=== PATIENT | female | born 1975 | race Caucasian/White ===

== ENCOUNTER 2024-04-03 17:29 | Emergency (ER) | payer BC, SELFPAY ==
[2024-04-03] VITALS (13 sets, daily range): BP systolic 132–186; BP diastolic 79–106; PULSE 66–82; RESP 15–18; TEMP 36.9; O2SAT 97–100; BMI 23.6
--- NOTE | 2024-04-03 17:37 | DI.RAD.S_ITS ---
PROCEDURE: XR CHEST 1V INDICATIONS: chest pain TECHNIQUE: One view of the chest was acquired. COMPARISON: None. FINDINGS: Surgical changes and devices: None. Lungs and pleura: No dense consolidation or pleural effusion. There are low lung volumes. Mediastinum: Normal heart size Bones and chest wall: Unremarkable IMPRESSION: No acute radiographic abnormality on this limited single view study with low lung volumes. Dictated by: Ananth Adorno M.D. on 04/03/2024 at 18:20 Approved by: Ananth Adorno M.D. on 04/03/2024 at 18:20
--- NOTE | 2024-04-03 17:37 | EKG_ITS ---
[address] [address] [place] [address] Test Date: 2024-04-03 Pat Name: Damaris Daigle Department: [facility] Room: Gender: Female Senior Lead Project Manager: GALO ALLEN : 1975 Requested By: Order Number: [id number] Reading MD: Pancho Wolf MD Measurements Intervals [place] Rate: 73 P: 5 ME: 156 QRS: 15 QRSD: 76 T: 13 QT: 412 QTc: 453 Interpretive Statements Sinus rhythm with occasional premature ventricular complexes Electronically Signed On 04-04-2024 7:57:46 PDT by Pancho Wolf MD
[2024-04-03 17:52] LABS: Add Manual Diff / Slide Review NO; Basophils Absolute Auto 100 /uL (0-100); Basophils Percent Auto 1.2 % (0-2); Eosinophils Absolute Auto 100 /uL (0-450); Eosinophils Percent Auto 1.4 % (2-4); Hemoglobin 14.8 g/dL (12.0-16.0); Lymphocytes Absolute Auto 2200 /uL (1100-4500); Mean Corpuscular HGB Conc 34.4 % (30-36); Mean Corpuscular Hemoglobin 31.6 PG (26-34); Mean Corpuscular Volume 91.9 fL (80-100); Monocytes Absolute Auto 600 /uL (0-900); Monocytes Percent Auto 10.1 % (3-14); Neutrophils Absolute Auto 3000 /uL (1500-7000); Neutrophils Percent Auto 50.3 % (50-75); Platelet Count 224 X10^3/uL (150-400); Red Blood Cell Count 4.68 X10^6/uL (4.0-5.2); Red Cell Distribution Width 12.1 % (11.6-14.8); White Blood Cell Count 5.9 X10^3/uL (4.5-11.0)
[2024-04-03 18:00] LABS: Prothrombin Time 11.4 SECONDS (9.4-12.5)
[2024-04-03] MEDS: ASPIRIN 81 MG CHEW TAB 324 MG PO (18:02)
[2024-04-03 18:03] LABS: PTT Partial Thromboplastin Tim 41 SECONDS (25.1-36.5)
[2024-04-03] MEDS: NITROGLYCERIN 0.4 MG SL TAB SL ×3 (18:03→18:22)
[2024-04-03 18:06] LABS: Alanine Aminotransferase 18 IU/L (<35); Albumin 4.6 g/dL (3.5-5.0); Albumin Globulin Ratio 1.4 (1.0-2.8); Alkaline Phosphatase 76 U/L (38-126); Aspartate Aminotransferase 24 IU/L (14-36); BUN Creatinine Ratio 16.1 (6-22); Bilirubin Total 0.6 mg/dL (0.2-1.3); Blood Urea Nitrogen 14 mg/dL (7-17); Calcium 9.5 mg/dL (8.4-10.2); Carbon Dioxide 26 mmol/L (22-32); Chloride 104 mmol/L (98-107); Creatine Kinase 64 U/L (30-135); Estimated Glomerular Filt Rate > 60 mL/min (>60); Globulin 3.3 g/dL (1.7-4.1); Glucose 119 mg/dL (70-100); HEMOLYSIS < 15 (0-50); Lipase 83 U/L (23-300); Magnesium 2.3 mg/dL (1.6-2.3); Potassium 3.7 mmol/L (3.4-5.1); Sodium 138 mmol/L (137-145); Total Protein 7.9 g/dL (6.3-8.2)
[2024-04-03 18:19] LABS: NT-proBNP (BNP-Adult 18+) < 20 pg/mL (<125); Troponin I < 0.012 ng/mL (0.01-0.034)
--- NOTE | 2024-04-03 19:26 | ED_ITS ---
HPI - Chest Pain General Chief Complaint: Chest Pain Stated Complaint: Think I'm Having a Heart Attack Time Seen by Provider: 04/03/24 17:50 Source: patient Mode of arrival: Ambulatory Limitations: no limitations History of Present Illness HPI narrative: 48-year-old female with precordial chest discomfort onset 4:00 p.m. today while at a meeting, she was able to get through the meeting, not able to take any medications, with some associated nausea without emesis, some initial diaphoresis, decreased some but still slightly present. No trauma injury or new activities. No known history of coronary artery disease or stomach acid problems. No prior coronary artery interventions, no coronary stress test. He denies cardiac risk factors of diabetes, hypertension, cholesterol problems, smoking. She did have family history of heart attack, her parents but at older ages in their 70s. No recent cough fevers or chills. No diarrhea, black stools red stools. Related Data Home Medications Medication Instructions Recorded Confirmed cetirizine 10 mg tablet (Zyrtec) 10 mg PO DAILY PRN 10/19/23 01/17/24 lamotrigine 300 mg tablet,extended 300 mg PO DAILY 10/19/23 01/17/24 release 24 hr Previous Rx's Medication Instructions Recorded estradiol 0.05 mg/24 hr semiweekly 1 patch transdermal 2XW #8 ea 01/17/24 transdermal patch (Delicia) progesterone micronized 100 mg 100 mg PO BEDTIME #30 caps 01/17/24 capsule (Prometrium) Allergies Allergy/AdvReac Type Severity Reaction Status Date / Time No Known Drug Allergies Allergy Verified 04/03/24 17:39 Review of Systems Review of Systems Narrative: see HPI Patient History Medical History (Updated 04/03/24 @ 19:30 by Jean-Claude Hood MD) Allergies Depression (~1989) Anxiety (~2016) Fractures Chicken pox (~1979) Anemia (~1987) Human papilloma virus (~1989) Heavy menstrual period (~1987) Genital warts (~1989) Abnormal Pap smear of cervix (~2002) Cervical cancer (~2002) Surgical History (Updated 12/03/23 @ 19:02 by Alycia Gomez) Anesthesia History of section (~03/05/04) Family History (Updated 12/03/23 @ 19:08 by Alycia Gomez) Father Cancer of kidney Mother Atrial fibrillation Diabetes mellitus Lymphoma History of heart disease Hypertension Mental health problem Grandfather Cancer Diabetes mellitus Grandmother Cancer Diabetes mellitus History of heart disease Grandfather Alcoholism Bleeding ulcer Grandmother Cancer History of heart disease Social History Smoking Status: Never smoker Smoking Status: Never smoker alcohol intake frequency: a few times a month Substance Use Type: does not use Exam Narrative Exam Narrative: GENERAL: Well-developed patient, in mild distress. HEAD: Atraumatic. Normocephalic. EYES: Pupils equal round and reactive. Extraocular motions intact. No scleral icterus. No injection or drainage. ENT: Nose without bleeding, purulent drainage. Throat without erythema, tonsillar hypertrophy or exudate. Airway patent. NECK: Trachea midline. Non tender CARDIOVASCULAR: Regular rate and rhythm without murmurs, gallops, or rubs. RESPIRATORY: Clear to auscultation. Breath sounds equal bilaterally. No wheezes, rales, or rhonchi. GASTROINTESTINAL: Abdomen soft, non-tender, nondistended. EXTREMITIES: No edema or joint tenderness. BACK: Nontender without deformity or crepitance. No flank tenderness. NEURO: AOx3. Motor functions grossly nonfocal SKIN: No rash or erythema of visible areas Initial Vital Signs Initial Vital Signs: Vital Signs Temperature 98.4 F 04/03/24 17:35 Pulse Rate 82 04/03/24 17:35 Respiratory Rate 18 04/03/24 17:35 Blood Pressure 186/106 H 04/03/24 17:35 Pulse Oximetry 100 04/03/24 17:35 Oxygen Delivery Method Room Air 04/03/24 17:35 Scores HEART Score Heart Score history: Slightly Suspicious Heart Score EKG: Normal Heart Score Age: 45-64 years old Heart Score risk factors: No known risk factors Heart Score troponin: < or = to normal limit Heart Score Total: 1 Course Orders Ordered: ED Orders 04/03/24 17:37 XR chest 1V Stat EKG-12 Lead Stat 04/03/24 17:45 Complete Blood Count AUTO DIFF Stat Comprehensive Metabolic Panel Stat Lipase Stat Magnesium Stat NT-proBNP (BNP-Adult 18+) Stat PTT Partial Thromboplastin [place] Stat Prothrombin Time INR Stat Troponin & CK Cardiac Panel Stat 04/03/24 19:51 Troponin I Stat Discontinued Medications Aspirin (Aspirin 81 Mg Chew Tab) 324 mg PO NOW ONE Stop: 04/03/24 17:37 Last Admin: 04/03/24 18:02 Dose: 324 mg Documented By: WILD Al Hydrox/Mg Hydrox/Simethicone 20 ml/ Lidocaine HCl 15 ml 0 ml PO NOW ONE Stop: 04/03/24 19:36 Last Admin: 04/03/24 19:55 Dose: 35 ml Documented By: RAUL Labetalol HCl (Labetalol 20 Mg/4 Ml Syringe) 20 mg IV NOW ONE Stop: 04/03/24 17:52 Last Admin: 04/03/24 17:58 Dose: Not Given Documented By: WILD Nitroglycerin (Nitroglycerin Oint 1 Inch/Gm Oint...G.) 1 inch TOP NOW ONE Stop: 04/03/24 17:52 Last Admin: 04/03/24 17:59 Dose: Not Given Documented By: WILD Nitroglycerin (Nitroglycerin 0.4 Mg Sl Tab) 0.4 mg SL [id number] PRN PRN Reason: Chest Pain Last Admin: 04/03/24 18:22 Dose: 0.4 mg Documented By: Admin: 04/03/24 18:11 Dose: 0.4 mg Documented By: Admin: 04/03/24 18:03 Dose: 0.4 mg Documented By: WILD Pantoprazole Sodium (Pantoprazole 40 Mg Vial) 40 mg IV NOW ONE Stop: 04/03/24 19:36 Last Admin: 04/03/24 19:55 Dose: 40 mg Documented By: RAUL Vital Signs Vital signs: Vital Signs - 8 hr 04/03/24 17:35 04/03/24 17:49 04/03/24 17:49 Temperature 98.4 F Pulse Rate 82 72 Respiratory Rate 18 15 Blood Pressure 186/106 H 173/99 H Pulse Oximetry 100 100 Oxygen Delivery Method Room Air Room Air 04/03/24 18:00 04/03/24 18:00 04/03/24 18:03 Temperature Pulse Rate 70 78 Respiratory Rate 17 Blood Pressure 167/92 H 167/92 H Pulse Oximetry 100 Oxygen Delivery Method 04/03/24 18:10 04/03/24 18:10 04/03/24 18:11 Temperature Pulse Rate 81 74 Respiratory Rate 18 Blood Pressure 142/85 H 142/85 H Pulse Oximetry 99 Oxygen Delivery Method 04/03/24 18:22 04/03/24 18:22 04/03/24 18:22 Temperature Pulse Rate 74 74 Respiratory Rate 16 Blood Pressure 141/90 H 141/90 H Pulse Oximetry 97 Oxygen Delivery Method 04/03/24 18:30 04/03/24 18:30 04/03/24 19:00 Temperature Pulse Rate 73 Respiratory Rate 15 Blood Pressure 137/82 132/79 Pulse Oximetry 98 Oxygen Delivery Method 04/03/24 19:00 04/03/24 19:30 04/03/24 19:30 Temperature Pulse Rate 66 67 Respiratory Rate 18 17 Blood Pressure 134/80 Pulse Oximetry 99 100 Oxygen Delivery Method 04/03/24 20:01 04/03/24 20:02 04/03/24 20:02 Temperature Pulse Rate 74 68 Respiratory Rate 17 Blood Pressure 133/91 H Pulse Oximetry 100 99 Oxygen Delivery Method Room Air Room Air 04/03/24 20:30 04/03/24 20:30 Temperature Pulse Rate 68 Respiratory Rate 17 Blood Pressure 137/91 H Pulse Oximetry 98 Oxygen Delivery Method MDM - Chest Pain Lab Data Attestation: I reviewed the patient's lab results. 04/03/24 17:45 04/03/24 17:45 Labs: Lab Results 04/03/24 04/03/24 Range/Units 17:45 19:51 WBC 5.9 (4.5-11.0) X10^3/uL RBC 4.68 (4.0-5.2) X10^6/uL Hgb 14.8 (12.0-16.0) g/dL Hct 43.0 (36-46) % MCV 91.9 (80-100) fL MCH 31.6 (26-34) PG MCHC 34.4 (30-36) % RDW 12.1 (11.6-14.8) % Plt Count 224 (150-400) X10^3/uL Neut % (Auto) 50.3 (50-75) % Lymph % (Auto) 37.0 (25-40) % [place] % (Auto) 10.1 (3-14) % Eos % (Auto) 1.4 L (2-4) % Baso % (Auto) 1.2 (0-2) % Neut # (Auto) 3000 (8853-2740) /uL Lymph # (Auto) 2200 (8285-8911) /uL [place] # (Auto) 600 (0-900) /uL Eos # (Auto) 100 (0-450) /uL Baso # (Auto) 100 (0-100) /uL PT 11.4 (9.4-12.5) SECONDS INR 1.0 (0.9-1.3) APTT 41 H (25.1-36.5) SECONDS Sodium 138 (137-145) mmol/L Potassium 3.7 (3.4-5.1) mmol/L Chloride 104 (98-107) mmol/L Carbon Dioxide 26 (22-32) mmol/L BUN 14 (7-17) mg/dL Creatinine 0.87 (0.52-1.04) mg/dL Estimated GFR > 60 (>60) mL/min BUN/Creatinine Ratio 16.1 (6-22) Glucose 119 H (70-100) mg/dL Calcium 9.5 (8.4-10.2) mg/dL Magnesium 2.3 (1.6-2.3) mg/dL Total Bilirubin 0.6 (0.2-1.3) mg/dL AST 24 (14-36) IU/L ALT 18 (<35) IU/L Alkaline Phosphatase 76 (38-126) U/L Total Creatine Kinase 64 (30-135) U/L Troponin I < 0.012 < 0.012 (0.01-0.034) ng/mL NT-Pro-B Natriuret Pep < 20 (<125) pg/mL Total Protein 7.9 (6.3-8.2) g/dL Albumin 4.6 (3.5-5.0) g/dL Globulin 3.3 (1.7-4.1) g/dL Albumin/Globulin Ratio 1.4 (1.0-2.8) Lipase 83 (23-300) U/L Imaging Data Chest x-ray: Radiologist's Impression: [address] [address] XRay Report Signed Patient: Damaris Daigle MR#: [id number] : 1975 Acct:[id number] Age/Sex: 48 / F Date of Service: 04/03/24 Loc: ED Accession Number: [id number] Procedure: XR chest 1V Ordering Provider: Lexi Kelly MD PROCEDURE: XR CHEST 1V INDICATIONS: chest pain TECHNIQUE: One view of the chest was acquired. COMPARISON: None. FINDINGS: Surgical changes and devices: None. Lungs and pleura: No dense consolidation or pleural effusion. There are low lung volumes. Mediastinum: Normal heart size Bones and chest wall: Unremarkable IMPRESSION: No acute radiographic abnormality on this limited single view study with low lung volumes. Dictated by: Ananth Adorno M.D. on 04/03/2024 at 18:20 Approved by: Ananth Adorno M.D. on 04/03/2024 at 18:20 ECG Data Attestation: I personally reviewed and interpreted this ECG as follows: Interpretation: Normal sinus rhythm with rate of 73, no obvious ST segment elevation or depression changes. Unifocal PVC noted. [place] 156, QRS 76, QTC 453. MDM Narrative Medical decision making narrative: 48-year-old female with substernal chest discomfort few hours duration decreasing but still present. No history of CAD known, lacks risk factors accept for family history although at higher ages in their 70s. Heart score equals 1, low risk. EKG unremarkable. Initial troponin negative, awaiting interval repeat troponin. GI cocktail, IV Protonix. DDx ACS, JOVI, gastritis, peptic ulcer, pancreatitis, musculoskeletal, other. Repeat troponin negative. Hemoglobin LFTs lipase unremarkable. Further workup as an outpatient for now. Advice use of oral aspirin daily. Consider omeprazole course. Further Cardiology and/or Gastroenterology evaluation as an outpatient. Return precautions discussed. Discharge Plan Departure Patient Disposition: Home Clinical Impression: Chest pain Activity Restrictions/Additional Instructions: Precordial chest discomfort, low risk by risk factors for coronary event. Screening EKG unremarkable. Serial blood tests not suggestive of heart attack at this time. Other blood tests unremarkable. Chest x-ray negative. Consider aspirin daily. Consider omeprazole [id number] antacid daily. Further cardiac or GI or other workup as an outpatient for now. Recheck with your regular doctor in the next couple of days to facilitate outpatient referrals as needed. Return earlier to this/nearest emergency department for any change worsening symptoms or any concerns prior Prescriptions: No Action estradiol [Delicia] 0.05 mg/24 hr patch semiweekly 1 patch transdermal 2XW Qty: 8 12RF Rx Instructions: apply 1 patch for 3 days alternating with 1 patch for 4 days each week progesterone micronized [Prometrium] 100 mg capsule 100 mg PO BEDTIME Qty: 30 12RF lamotrigine 300 mg tablet extended release 24hr 300 mg PO DAILY cetirizine [Zyrtec] 10 mg tablet 10 mg PO DAILY PRN Stand Alone Forms: Patient Portal/API
[2024-04-03] MEDS: MAG HYDROX/ALUMINUM/SIMETH SUS 20 ML, LIDOCAINE VISCOUS 2% 15 ML PO (19:55)
[2024-04-03] MEDS: PANTOPRAZOLE 40 MG VIAL IV (19:55)
[2024-04-03 20:20] LABS: Troponin I < 0.012 ng/mL (0.01-0.034)
== END 2024-04-03 20:44 | disposition home or self-care (01) ==
PROVIDERS: Emergency Medicine; Emergency Provider Emergency Medicine
DX: R07.9 Chest pain, unspecified (principal); R11.0 Nausea
CPT/HCPCS: 36415; 71045; 80053; 82550; 83690; 83735; 83880; 84484; 85025; 85610; 85730; 93005; 93010; 96374; 99284; J2470